=== PATIENT | male | born 1995 | race Two or more races ===

== ENCOUNTER 2017-12-27 10:31 | Emergency (ER) | payer OTHER ==
[2017-12-27] MEDS ORDERED: NS(*) 0.9% 1000 ML BAG 1,000 ML IV ONE (10:40)
--- NOTE | 2017-12-27 10:49 | ER Report ---
History and Physical Time Seen By MD: 10:49 Hx. of Stated Complaint: dec 12 pt injured low back heavy lifting, hurting since upon twisting/bending HPI/ROS CHIEF COMPLAINT: back pain HISTORY OF PRESENT ILLNESS: This is a 22 year old male. He had an injury to his back at work on December 12. Lifting and twisting. Pain in low back since then. No radiation to legs, upper back or abdomen. No weakness. No numbness. No loss of control of bowel or bladder function. No saddle anesthesia. No history of back problems or back injuries. Still hurting, especially with lifting. No chest pain or shortness of breath. No abdominal pain. Allergies: Coded Allergies: No Known Drug Allergies (Unverified , 12/27/17) Home Meds No Active Prescriptions or Reported Meds Reviewed Nurses Notes: Yes Hx Substance Use Disorder: No Hx Alcohol Use: Yes (occ) Constitutional Vital Sign - Last 24 Hours 12/27/17 12/27/17 12/27/17 12/27/17 10:31 10:37 10:39 10:46 Temp 97.5 Pulse ??? 72 64 Resp 18 B/P (MAP) 143/87 143/87 (105) Pulse Ox 90 97 O2 Delivery Room Air 12/27/17 12/27/17 12/27/17 12/27/17 11:00 11:01 11:11 11:16 Pulse ??? 70 B/P (MAP) 128/92 (104) 129/86 (100) Pulse Ox 98 12/27/17 12/27/17 12/27/17 12/27/17 11:30 11:31 11:46 11:51 Pulse 75 71 70 B/P (MAP) 132/84 (100) Pulse Ox 93 96 95 12/27/17 12/27/17 12/27/17 12/27/17 12:00 12:06 12:21 12:30 Pulse 71 ??? B/P (MAP) 112/82 (92) ???/??? (1665) Pulse Ox 100 12/27/17 12/27/17 12/27/17 12/27/17 12:36 12:51 12:56 13:00 Pulse 70 78 70 B/P (MAP) ???/??? (166) Pulse Ox 98 97 84 12/27/17 12/27/17 12/27/17 13:11 13:24 13:26 Pulse 80 73 B/P (MAP) 130/92 (105) Pulse Ox 94 98 Physical Exam General appearance: alert no distress. Back: Thoracic spine has no spinal or paraspinal tenderness to palpation. Lumbar spine has some tenderness in the lower lumbar spine, no paraspinal tenderness Gastrointestinal: Abdomen is soft, non tender, no masses. Skin: No lesions and no rashes. Vascular: Normal capillary refill and pulses to feet. Neurological: Motor function: leg strength normal and symmetric for both legs Sensory function: normal for all leg dermatomes. Straight leg raise negative to 70 degrees. DIFFERENTIAL DIAGNOSIS: After history and physical exam differential diagnosis was considered for back pain including muscular strain, herniated disc, intra- abdominal and renal causes. Medical Decision Making EKG/Imaging Imaging LUMBAR SPINE 2 OR 3 VIEW INDICATION: Pain and lower back when lifting. COMPARISON: None available FINDINGS: 3 views of the lumbar spine. There are 5 nonrib-bearing lumbar vertebral bodies. The vertebral bodies are aligned. No compression fractures. Mild wedging of the L1 vertebral body is most likely physiologic. No bony lesions or spondylolysis. No significant degenerative changes. Endplates are maintained. The pedicles well seen. Soft tissues unremarkable. IMPRESSION: No indication of acute abnormality. There is mild wedging of the L1 vertebral body, which is most likely physiologic. If symptoms persist a follow- up MRI of the lumbar spine can evaluate for edema to the L1 vertebral body or soft tissue abnormality. Report Dictated By: Azeem Camara at 12/27/2017 12:08 PM ED Course/Re-evaluation ED Course Reviewed the imaging as above. Based on history and exam and imaging, this appears to be a low back strain. Recommended off work until Saturday. He is already scheduled to be off work tomorrow, and will keep him off on Saturday and Saturday. Would like him to try and see physical therapy soon to start treatments. 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 Gave a list of primary care providers that he can choose from. Will limit lifting and lifting with twisting at this time. Further restrictions can be determined from physical therapy and primary care. May begin work with these restrictions on 12/31/2017. Otherwise conservative measures for lumbar strain as noted below. Filled out paperwork required by his employer, the [employer]. Decision to Disposition Date: Dec 27, 2017 Decision to Disposition Time: 13:12 Depart Departure Latest Vital Signs Vital Signs Date Time Temp Pulse Resp B/P (MAP) Pulse Ox O2 Delivery O2 Flow Rate FiO2 12/27/17 13:26 73 98 12/27/17 13:24 130/92 (105) 12/27/17 10:37 97.5 18 Room Air Impression: Primary Impression: Lumbar back sprain Condition: Improved Disposition: HOME OR SELF-CARE New Scripts No Active Prescriptions or Reported Meds Patient Instructions: Low Back Strain (ED) Additional Instructions: Please establish with primary care for visits to follow-up with your lumbar strain and for further evaluation regarding work limitations and release to regular duties. Off work Saturday and Saturday. Call and make appointment with physical therapy, hopefully to begin in the next 3-5 days. Ibuprofen 200mg over the counter tablets, take 4 tablets every 8 hours as needed for pain. You can apply ice or heating pad to the area as needed. Problem Qualifiers Primary Impression: Lumbar back sprain Encounter type: initial encounter Qualified Codes: S33.5XXA - Sprain of ligaments of lumbar spine, initial encounter HUONG GOODWIN MD Dec 27, 2017 10:49
--- NOTE | 2017-12-27 12:14 | RADIOLOGY IMAGING REPORT ---
[place] [facility] [place] Stephen Storey : 1995 MR: [id number] V: [id number] EXAM DATE: ORDERING PHYSICIAN: HUONG GOODWIN TECHNOLOGIST: Location: [facility] Patient: Stephen Storey : 1995 Visit/Account:[id number] Date of Sevice: 12/27/2017 LUMBAR SPINE 2 OR 3 VIEW INDICATION: Pain and lower back when lifting. COMPARISON: None available FINDINGS: 3 views of the lumbar spine. There are 5 nonrib-bearing lumbar vertebral bodies. The vert ebral bodies are aligned. No compression fractures. Mild wedging of the L1 vertebral body is most lik evelyn physiologic. No bony lesions or spondylolysis. No significant degenerative changes. Endplates are maintained. The pedicles well seen. Soft tissues unremarkable. IMPRESSION: No indication of acute abnormality. There is mild wedging of the L1 vertebral body, which is most likely physiologic. If symptoms persist a follow-up MRI of the lumbar spine can evaluate for edema to the L1 vertebral body or soft tissue abnormality. Report Dictated By: Azeem Camara at 12/27/2017 12:08 PM Report E-Signed By: Azeem Camara at 12/27/2017 12:10 PM WSN:[id number]
[2017-12-27 13:24] VITALS: BP 130/92
== END 2017-12-27 13:37 | disposition home or self-care (01) ==
LOC: ER 10:32
DX: S33.5XXA Sprain of ligaments of lumbar spine, initial encounter (principal); X50.0XXA Overexertion from strenuous movement or load, initial encounter; Y99.0 Civilian activity done for income or pay
CPT/HCPCS: 72100; 99282

== ENCOUNTER → 2019-06-02 | Outpatient (CLI) | payer OTHER ==
--- NOTE | 2019-06-02 15:02 | RADIOLOGY IMAGING REPORT ---
FACILITY: [facility] [place] PATIENT NAME: Stephen Storey : 1995 MR: [id number] V: [id number] EXAM DATE: ORDERING PHYSICIAN: CRISTIN GALAN TECHNOLOGIST: Location: [facility] Patient: Stephen Stoery : 1995 Visit/Account:[id number] Date of Sevice: 06/02/2019 THYROID HISTORY: Thyromegaly COMPARISON: None. FINDINGS: SIZE: Right lobe: 4.8 x 1.7 x 1.7 cm Left lobe: 4.3 x 1.4 x 1.7 cm Isthmus: 3 mm PARENCHYMA: Homogeneous. NODULES: Right lobe: * None discrete. Left lobe: * None discrete. Isthmus: * There is a 1 x 2 mm cyst in the right-sided the isthmus VASCULARITY: Within normal limits. ADDITIONAL FINDINGS: None. IMPRESSION: Unremarkable thyroid ultrasound other than incidental 2 mm cyst right-sided isthmus REFERENCE: 2015 [place] [employer] Management Guidelines for Adult Patients with Thyroid Nodules and D ifferentiated Thyroid Cancer: The [place] [employer] Guidelines Task Force on Thyroid Nodul es and Differentiated Thyroid Cancer. SONOGRAPHIC PATTERNS: * Benign: Purely cystic nodules (no solid component); estimated risk of malignancy <1 percent; no bi opsy recommended. * Very Low Suspicion: Spongiform or partially cystic nodules without any of the sonographic features described in low, intermediate, or high suspicion patterns; estimated risk of malignancy <3 percent; consider FNA at > 2 cm (Observation without FNA is also a reasonable option). * Low Suspicion: Isoechoic or hyperechoic solid nodule, or partially cystic nodule with eccentric so lid areas, without microcalcification, irregular margin or ETE (extra-thyroidal extension), or taller than wide shape; estimated risk of malignancy 5-10 percent; recommend FNA at >1.5 cm. * Intermediate Suspicion: Hypoechoic solid nodule with smooth margins without microcalcifications, E TE (extra-thyroidal extension), or taller than wide shape; estimated risk of malignancy 10-20 percent ; recommend FNA at > 1 cm. * High Suspicion: Solid hypoechoic nodule or solid hypoechoic component of a partially cystic nodule with one or more of the following features: irregular margins (infiltrative, microlobulated), microc alcifications, taller than wide shape, rim calcifications with small extrusive soft tissue component, evidence of ETE (extra-thyroidal extension); estimated risk of malignancy >70-90 percent; recommend FNA at > 1 cm. NOTES: * Although a sonographically suspicious subcentimeter thyroid nodule without evidence of extrathyroi praneeth extension or sonographically suspicious lymph nodes may be observed with close sonographic follow -up rather than pursuing immediate FNA, patient age and preference may modify decision-making. A > 50% interval increase in nodule volume and/or development of new suspicious sonographic features are felt to be a valid reasons for potential re-aspiration of a nodule previously shown to have benig n FNA cytology. Report Dictated By: Ольга Vera MD at 06/02/2019 2:42 PM Report E-Signed By: Ольга Vera MD at 06/02/2019 2:53 PM WSN:[id number]
== END ==
LOC: US 00:38
PROVIDERS: ATTEND Family Medicine
DX: E01.0 Iodine-deficiency related diffuse (endemic) goiter (principal)
CPT/HCPCS: 76536

== ENCOUNTER → 2019-06-02 | Outpatient (CLI) | payer OTHER ==
[2019-06-02 09:20] LABS: PLATELET COUNT, AUTOMATED 219 K/uL (150-450)
[2019-06-02 10:05] LABS: LDL CHOLESTEROL 76 mg/dl
== END ==
LOC: LAB 08:54
PROVIDERS: ATTEND Family Medicine
DX: R63.4 Abnormal weight loss (principal); L64.9 Androgenic alopecia, unspecified; R04.9 Hemorrhage from respiratory passages, unspecified
CPT/HCPCS: 36415; 82040; 82247; 82310; 82374; 82435; 82465; 82565; 82947; 83718; 84075; 84132; 84155; 84295; 84443; 84450; 84460; 84478; 84520; 85025